=== PATIENT | female | born 1950 | race Hispanic/Latino ===

== ENCOUNTER 2017-05-23 22:17 | Emergency (ER) | payer MEDICARE, OTHER ==
[~2017-05-23 22:17] MED LIST: ASPI-1197 PO; FENO160T16 PO; METO-391 PO; NITR0.4T50 SL; OMEP40CA37 PO
[2017-05-23 23:20] LABS: BASOPHILS % (AUTO) 0.6 % (0.0-5.0); EOSINOPHILS % (AUTO) 3.5 % (0.0-8.0); HEMATOCRIT 39.5 % (36-48); LYMPHOCYTES % (AUTO) 36.5 % (21.0-51.0); MEAN CORPUSCULAR HEMOGLOBIN 28.5 pg (27.0-33.0); MEAN CORPUSCULAR HGB CONC 32.9 g/dL (32.0-36.0); MEAN CORPUSCULAR VOLUME 86.6 fL (79-99); MONOCYTES % (AUTO) 6.1 % (3.0-13.0); NEUTROPHILS % (AUTO) 53.3 % (40.0-77.0); PLATELET COUNT (AUTO) 370 K/uL (130-400); RED BLOOD CELL COUNT(AUTO) 4.56 MIL/uL (4.00-5.50); RED CELL DISTRIBUTION WIDTH 14.5 % (11.0-15.5)
[2017-05-23 23:33] LABS: RAPID GROUP A STREP NEGATIVE (NEGATIVE)
[2017-05-23 23:36] LABS: POTASSIUM 3.8 mmol/L (3.5-5.1)
[2017-05-23 23:41] LABS: ALBUMIN 3.7 g/dL (3.5-5.0); BILIRUBIN,TOTAL 0.1 mg/dL (0.2-1.0); TOTAL PROTEIN, SERUM 7.5 g/dL (6.0-8.3)
== END 2017-05-24 00:10 | disposition home or self-care (01) ==
LOC: EDH 22:17
DX: B34.9 Viral infection, unspecified (principal); M19.90 Unspecified osteoarthritis, unspecified site; K21.9 Gastro-esophageal reflux disease without esophagitis; E78.5 Hyperlipidemia, unspecified; I10 Essential (primary) hypertension; Z88.1 Allergy status to other antibiotic agents; Z88.8 Allergy status to other drugs, medicaments and biological substances; Z98.890 Other specified postprocedural states
CPT/HCPCS: 36415; 71045; 80053; 85025; 87804; 87880; 93005

== ENCOUNTER 2017-05-25 23:43 | Observation (INO) | payer OTHER ==
[~2017-05-25] VITALS: Ht 157.5 cm; Wt 71.1 kg
[2017-05-25] MEDS ORDERED: ASPIRIN 325 MG TABLET ONE (23:52)
[2017-05-25] MEDS ORDERED: NITROGLYCERIN 0.4 MG SL TAB SL ONE (23:52)
[2017-05-26 00:12] LABS: BASOPHILS % (AUTO) 0.8 % (0.0-5.0); EOSINOPHILS % (AUTO) 2.8 % (0.0-8.0); HEMATOCRIT 36.6 % (36-48); LYMPHOCYTES % (AUTO) 15.9 % (21.0-51.0); MEAN CORPUSCULAR HEMOGLOBIN 29.2 pg (27.0-33.0); MEAN CORPUSCULAR HGB CONC 33.8 g/dL (32.0-36.0); MEAN CORPUSCULAR VOLUME 86.3 fL (79-99); MONOCYTES % (AUTO) 5.1 % (3.0-13.0); NEUTROPHILS % (AUTO) 75.4 % (40.0-77.0); PLATELET COUNT (AUTO) 388 K/uL (130-400); RED BLOOD CELL COUNT(AUTO) 4.24 MIL/uL (4.00-5.50); RED CELL DISTRIBUTION WIDTH 14.3 % (11.0-15.5); WHITE BLOOD COUNT (AUTO) 10.7 K/uL (4.8-10.8)
[2017-05-26 00:21] LABS: POTASSIUM 3.3 mmol/L (3.5-5.1)
[2017-05-26 00:25] LABS: ALBUMIN 3.7 g/dL (3.5-5.0); BILIRUBIN,TOTAL 0.1 mg/dL (0.2-1.0); TOTAL PROTEIN, SERUM 7.3 g/dL (6.0-8.3)
[2017-05-26 00:36] LABS: INR 0.94 (0.85-1.15); PARTIAL THROMBOPLASTIN TIME 26.3 SEC (26.3-35.5); PROTHROMBIN TIME 9.9 SEC (9.6-11.6)
[2017-05-26] MEDS ORDERED: HYDRALAZINE HCL 20 MG/ML VIAL IV PRN (03:30)
[2017-05-26 03:45] VITALS: BP 137/76
[2017-05-26] MEDS ORDERED: OSEL75 PO (04:04)
[2017-05-26 06:32] LABS: CREATINE KINASE MB 0.7 ng/mL (0.5-3.6); CREATINE KINASE, TOTAL 99 U/L (21-232); MYOGLOBIN 40 ng/mL (10-92); TROPONIN I < 0.04 ng/mL (0.00-0.06)
[2017-05-26 08:00] VITALS: BP 138/72
[2017-05-26] MEDS: ASPIRIN 81 MG EC TAB PO SCH ×3 (09:00→17:53)
[2017-05-26 11:58] VITALS: BP 129/72
[2017-05-26 12:32] LABS: CREATINE KINASE MB 0.8 ng/mL (0.5-3.6); CREATINE KINASE, TOTAL 105 U/L (21-232); MYOGLOBIN 43 ng/mL (10-92); TROPONIN I < 0.04 ng/mL (0.00-0.06)
[2017-05-26 15:59] VITALS: BP 118/66
== END 2017-05-26 18:40 | disposition home or self-care (01) ==
LOC: EDH 23:43 → EDHIP 05-26 02:20 → INTOOBSV 05-26 02:20 → 3CH 05-26 03:34
PROVIDERS: ADMIT Family Medicine; ATTEND Family Medicine
DX: R07.89 Other chest pain (principal); I10 Essential (primary) hypertension; E78.00 Pure hypercholesterolemia, unspecified; K21.9 Gastro-esophageal reflux disease without esophagitis; E78.5 Hyperlipidemia, unspecified; Z88.1 Allergy status to other antibiotic agents; Z79.82 Long term (current) use of aspirin; Z79.899 Other long term (current) drug therapy
CPT/HCPCS: 36415; 80053; 82550 ×3; 82553 ×2; 83874 ×2; 84484 ×3; 85025; 85610; 85730; 93005 ×3; 99285; G0378 ×16

== ENCOUNTER → 2017-06-25 | Outpatient (CLI) | payer OTHER ==
[~2017-06-25] MED LIST changes: +OSEL75 PO; +REGADENOSON 0.4 MG/5 ML PF SYG IVP SCH
== END | disposition home or self-care (01) ==
LOC: SHCH 07:52
PROVIDERS: ATTEND Internal Medicine Cardiovascular Disease
DX: R07.9 Chest pain, unspecified (principal)
CPT/HCPCS: 78452; 93017; 96374; A9500 ×2; J2785

== ENCOUNTER 2018-01-06 19:18 | Emergency (ER) | payer OTHER ==
[~2018-01-06 19:18] MED LIST changes: -REGADENOSON 0.4 MG/5 ML PF SYG IVP SCH
[2018-01-06 19:46] LABS: APPEARANCE,URINE Clear (CLEAR); BILIRUBIN,URINE Negative (NEGATIVE); COLOR,URINE Yellow (YELLOW); GLUCOSE, URINE (UA) Negative (NEGATIVE); KETONES,URINE Negative (NEGATIVE); LEUKOCYTE ESTERASE ,URINE Negative (NEGATIVE); NITRATE,URINE Negative (NEGATIVE); OCCULT BLOOD,URINE Trace (NEGATIVE); PH,URINE 5.5 (5.0-8.0); PROTEIN,URINE Negative (NEGATIVE); UROBILINOGEN,URINE 0.2 mg/dL (0.2-1.0)
[2018-01-06 20:01] LABS: BACTERIA,URINE Rare /HPF (None Seen); RBC,URINE 0-1 /HPF (0-1); SQUAMOUS EPITHELIAL CELL,UR Rare /HPF (0-2); WBC,URINE 0-1 /HPF (0-1)
[2018-01-06 20:32] LABS: BASOPHILS % (AUTO) 0.7 % (0.0-5.0); EOSINOPHILS % (AUTO) 1.5 % (0.0-8.0); HEMATOCRIT 38.2 % (36-48); MEAN CORPUSCULAR HEMOGLOBIN 28.7 pg (27.0-33.0); MEAN CORPUSCULAR VOLUME 86.8 fL (79-99); MONOCYTES % (AUTO) 7.7 % (3.0-13.0); NEUTROPHILS % (AUTO) 61.1 % (40.0-77.0); NUCLEATED RED BLOOD CELLS 0.1 % (0.0-0.19); PLATELET COUNT (AUTO) 328 K/uL (130-400); RED CELL DISTRIBUTION WIDTH 13.9 % (11.0-15.5); WHITE BLOOD COUNT (AUTO) 9.6 K/uL (4.8-10.8)
[2018-01-06] MEDS ORDERED: ACETAMINOPHEN-CODEINE 300/30MG TAB ONE (20:35)
[2018-01-06 20:48] LABS: POTASSIUM 3.6 mmol/L (3.5-5.1)
[2018-01-06 20:54] LABS: ALBUMIN 3.6 g/dL (3.5-5.0); BILIRUBIN,TOTAL 0.2 mg/dL (0.2-1.0); TOTAL PROTEIN, SERUM 7.4 g/dL (6.0-8.3)
== END 2018-01-06 22:10 | disposition home or self-care (01) ==
LOC: EDH 19:18
DX: M54.5 Low back pain (principal); R35.0 Frequency of micturition; K21.9 Gastro-esophageal reflux disease without esophagitis; E78.5 Hyperlipidemia, unspecified; I10 Essential (primary) hypertension; Z88.1 Allergy status to other antibiotic agents; Z88.8 Allergy status to other drugs, medicaments and biological substances; Z98.51 Tubal ligation status; Z98.890 Other specified postprocedural states
CPT/HCPCS: 36415; 74176; 80053; 81001; 83605; 83690; 84484; 85025; 93005

== ENCOUNTER 2018-01-10 01:14 | Emergency (ER) | payer OTHER ==
[2018-01-10 01:56] LABS: BASOPHILS % (AUTO) 1.2 % (0.0-5.0); EOSINOPHILS % (AUTO) 1.3 % (0.0-8.0); HEMATOCRIT 40.6 % (36-48); LYMPHOCYTES % (AUTO) 32.5 % (21.0-51.0); MEAN CORPUSCULAR HEMOGLOBIN 28.6 pg (27.0-33.0); MEAN CORPUSCULAR VOLUME 86.7 fL (79-99); MONOCYTES % (AUTO) 6.5 % (3.0-13.0); NEUTROPHILS % (AUTO) 58.5 % (40.0-77.0); PLATELET COUNT (AUTO) 328 K/uL (130-400); RED BLOOD CELL COUNT(AUTO) 4.68 MIL/uL (4.00-5.50); WHITE BLOOD COUNT (AUTO) 10.1 K/uL (4.8-10.8)
[2018-01-10 02:04] LABS: POTASSIUM 3.8 mmol/L (3.5-5.1)
[2018-01-10 02:06] LABS: INR 0.95 (0.85-1.15); PARTIAL THROMBOPLASTIN TIME 29.4 SEC (26.3-35.5)
[2018-01-10 02:09] LABS: ALBUMIN 3.8 g/dL (3.5-5.0); BILIRUBIN,TOTAL 0.2 mg/dL (0.2-1.0); TOTAL PROTEIN, SERUM 7.7 g/dL (6.0-8.3)
[2018-01-10 02:20] LABS: B-TYPE NATRIURETIC PEPTIDE 13 pg/mL (0-100)
[2018-01-10] MEDS ORDERED: MAGNESIUM HYDROXIDE 30 ML/UDCUP ONE (02:49)
[2018-01-10] MEDS ORDERED: LIDOCAINE HCL 2% VISCOUS 15 ML UDCUP ONE (02:49)
== END 2018-01-10 03:01 | disposition home or self-care (01) ==
LOC: EDH 01:14
DX: I10 Essential (primary) hypertension (principal); R07.89 Other chest pain; K21.9 Gastro-esophageal reflux disease without esophagitis; E78.5 Hyperlipidemia, unspecified; M19.90 Unspecified osteoarthritis, unspecified site; Z88.1 Allergy status to other antibiotic agents; Z88.8 Allergy status to other drugs, medicaments and biological substances; Z98.51 Tubal ligation status; Z98.890 Other specified postprocedural states
CPT/HCPCS: 36415; 71045; 80053; 82550; 83880; 84484; 85025; 85610; 85730; 93005; 94761

== ENCOUNTER 2018-01-19 20:11 | Emergency (ER) | payer OTHER ==
[2018-01-19] MEDS ORDERED: BUPIVACAINE/PF 0.5% 30ML VIAL ONE (21:14)
[2018-01-19] MEDS ORDERED: LIDOCAINE HCL-MPF 1% 2ML VIAL ONE (21:14)
[2018-01-19] MEDS ORDERED: MORPHINE SULFATE 2 MG/ML 1ML SYG ONE (21:17)
[2018-01-19] MEDS ORDERED: TETANUS/DIPHTHERIA TOXOID [ADULT] 0.5 ML VIAL IM ONE (21:17)
[2018-01-19] MEDS ORDERED: LIDOCAINE HCL MPF 1% 5ML VIAL ONE (21:20)
[2018-01-19 21:26] LABS: BASOPHILS % (AUTO) 0.7 % (0.0-5.0); EOSINOPHILS % (AUTO) 1.2 % (0.0-8.0); HEMATOCRIT 36.6 % (36-48); LYMPHOCYTES % (AUTO) 21.3 % (21.0-51.0); MEAN CORPUSCULAR HEMOGLOBIN 29.3 pg (27.0-33.0); MEAN CORPUSCULAR HGB CONC 33.8 g/dL (32.0-36.0); MEAN CORPUSCULAR VOLUME 86.8 fL (79-99); MONOCYTES % (AUTO) 6.7 % (3.0-13.0); NEUTROPHILS % (AUTO) 70.1 % (40.0-77.0); PLATELET COUNT (AUTO) 337 K/uL (130-400); RED BLOOD CELL COUNT(AUTO) 4.22 MIL/uL (4.00-5.50); WHITE BLOOD COUNT (AUTO) 10.1 K/uL (4.8-10.8)
[2018-01-19 21:37] LABS: CREATININE 1.1 mg/dL (0.5-1.5); POTASSIUM 4.1 mmol/L (3.5-5.1)
[2018-01-19 21:42] LABS: ALBUMIN 3.5 g/dL (3.5-5.0); BILIRUBIN,TOTAL 0.2 mg/dL (0.2-1.0); TOTAL PROTEIN, SERUM 6.9 g/dL (6.0-8.3)
[2018-01-19 22:03] LABS: APPEARANCE,URINE Clear (CLEAR); BILIRUBIN,URINE Negative (NEGATIVE); COLOR,URINE Yellow (YELLOW); GLUCOSE, URINE (UA) Negative (NEGATIVE); KETONES,URINE Negative (NEGATIVE); LEUKOCYTE ESTERASE ,URINE Negative (NEGATIVE); NITRATE,URINE Negative (NEGATIVE); OCCULT BLOOD,URINE Trace (NEGATIVE); PROTEIN,URINE Negative (NEGATIVE); UROBILINOGEN,URINE 0.2 mg/dL (0.2-1.0)
[2018-01-19 22:15] LABS: RBC,URINE 0-1 /HPF (0-1); WBC,URINE 0-1 /HPF (0-1)
[2018-01-19 22:16] LABS: BACTERIA,URINE None Seen /HPF (None Seen); SQUAMOUS EPITHELIAL CELL,UR Rare /HPF (0-2)
== END 2018-01-19 22:21 | disposition home or self-care (01) ==
LOC: EDH 20:11
DX: S42.292A Other displaced fracture of upper end of left humerus, initial encounter for closed fracture (principal); S91.112A Laceration without foreign body of left great toe without damage to nail, initial encounter; M19.90 Unspecified osteoarthritis, unspecified site; K21.9 Gastro-esophageal reflux disease without esophagitis; I10 Essential (primary) hypertension; E78.5 Hyperlipidemia, unspecified; Z98.890 Other specified postprocedural states; Z88.8 Allergy status to other drugs, medicaments and biological substances; Z79.899 Other long term (current) drug therapy; W01.0XXA Fall on same level from slipping, tripping and stumbling without subsequent striking against object, initial encounter; Y93.89 Activity, other specified; Y92.89 Other specified places as the place of occurrence of the external cause; Y99.8 Other external cause status
CPT/HCPCS: 12001; 36415; 70450; 73030; 73630; 80053; 81001; 84484; 85025; 90471; 90714; 93005; 96374; 99285; J3490 ×2

== ENCOUNTER 2018-01-30 09:35 | Observation (INO) | payer OTHER ==
[2018-01-29 16:19] LABS: BASOPHILS % (AUTO) 0.8 % (0.0-5.0); EOSINOPHILS % (AUTO) 1.5 % (0.0-8.0); HEMATOCRIT 36.9 % (36-48); LYMPHOCYTES % (AUTO) 25.3 % (21.0-51.0); MEAN CORPUSCULAR HEMOGLOBIN 29.5 pg (27.0-33.0); MEAN CORPUSCULAR HGB CONC 33.5 g/dL (32.0-36.0); MEAN CORPUSCULAR VOLUME 87.9 fL (79-99); MONOCYTES % (AUTO) 5.8 % (3.0-13.0); NEUTROPHILS % (AUTO) 66.6 % (40.0-77.0); PLATELET COUNT (AUTO) 457 K/uL (130-400); RED CELL DISTRIBUTION WIDTH 14.4 % (11.0-15.5); WHITE BLOOD COUNT (AUTO) 9.9 K/uL (4.8-10.8)
[2018-01-29 16:31] LABS: CREATININE 0.9 mg/dL (0.5-1.5); POTASSIUM 3.5 mmol/L (3.5-5.1)
[2018-01-29 16:32] VITALS: BP 161/75
[2018-01-29 16:33] LABS: INR 0.95 (0.85-1.15)
[2018-01-30] VITALS (16 sets, daily range): BP systolic 121–167; BP diastolic 55–84
[~2018-01-30] VITALS: Ht 156.2 cm; Wt 71.9 kg
[2018-01-30] MEDS: CEFAZOLIN SODIUM 1 GM VIAL IVP SCH ×3 (06:00→15:10)
[~2018-01-30 09:35] MED LIST changes: +ACET1TAB12 PO; +AMLO2.5T3 PO; -METO-391 PO; +METO-408 PO; -NITR0.4T50 SL; -OSEL75 PO
[2018-01-30] MEDS ORDERED: LACTATED RINGERS 1000ML 1,000 ML IV ONE (10:18)
[2018-01-30] MEDS ORDERED: ESMOLOL HCL 10 MG/ML 10 ML VIAL ONE (12:52)
[2018-01-30] MEDS ORDERED: LIDOCAINE PF 2% 5ML ABBOJECT ONE (12:52)
[2018-01-30] MEDS ORDERED: LIDOCAINE HCL 4% LTA SOL 4 ML VIAL ONE (12:52)
[2018-01-30] MEDS ORDERED: PROPOFOL 10 MG/ML 20ML VIAL IV ONE (12:53)
[2018-01-30] MEDS ORDERED: ONDANSETRON HCL 4 MG/2 ML VIAL ONE (12:53)
[2018-01-30] MEDS ORDERED: ROCURONIUM 10MG/1ML SYR 10 MG/ML ML ONE ×2 (12:53→15:22)
[2018-01-30] MEDS ORDERED: MIDAZOLAM HCL 1 MG/ML 2ML VIAL ONE (14:07)
[2018-01-30] MEDS ORDERED: FENTANYL CITRATE PF 50 MCG/1 ML 2ML VIAL ONE (14:07)
[2018-01-30] MEDS ORDERED: TRANEXAMIC ACID 1000MG/10ML IV ONE (15:04)
[2018-01-30] MEDS ORDERED: NEOSTIGMINE 5MG/5ML SYR IV ONE (16:57)
[2018-01-30] MEDS: ACETAMINOPHEN EXTRA STRENGTH 500 MG TABLET PO SCH ×2 (17:15→23:32)
[2018-01-30] MEDS ORDERED: POTASSIUM CHLORIDE 20MEQ/100ML 100 ML IV PRN (17:15)
[2018-01-30] MEDS ORDERED: HYDROCODONE/ACETAMINOPHEN 5/325 MG TAB PO PRN ×2 (17:15)
[2018-01-30] MEDS ORDERED: POTASSIUM CHLORIDE 20 MEQ ERTAB PO PRN (17:15)
[2018-01-30] MEDS ORDERED: CALCIUM CARBONATE 500 MG TABLET PO PRN (17:15)
[2018-01-30] MEDS ORDERED: PROMETHAZINE HCL 25 MG/ML 1ML AMPULE IM PRN (17:15)
[2018-01-30] MEDS ORDERED: DiphenhydrAMINE HCL 50 MG/ML VIAL IVP PRN (17:15)
[2018-01-30] MEDS ORDERED: TEMAZEPAM 15 MG CAPSULE PO PRN (17:15)
[2018-01-30] MEDS ORDERED: POTASSIUM CHLORIDE 10% ELIXIR 20 MEQ/15 ML UDCUP PO PRN (17:15)
[2018-01-30] MEDS ORDERED: DIPHENHYDRAMINE HCL 25 MG CAPSULE PO PRN (17:15)
[2018-01-30] MEDS ORDERED: LIDOCAINE HCL-MPF 1% 2ML VIAL IVP PRN (17:15)
[2018-01-30] MEDS ORDERED: FERROUS FUMARATE 324 MG TABLET PO PRN (17:15)
[2018-01-30] MEDS ORDERED: MEPERIDINE-PF 25 MG/ML SYG ONE (17:27)
[2018-01-30] MEDS: SODIUM CHLORIDE 0.9% 1000ML 1,000 ML IV SCH (18:22)
[2018-01-30] MEDS ORDERED: ASPIRIN 325 MG TABLET PO SCH (21:00)
[2018-01-30] MEDS ORDERED: AMLODIPINE BESYLATE 2.5 MG TAB PO SCH (21:00)
[2018-01-30] MEDS: FAMOTIDINE 20MG TAB 20 MG TAB PO SCH (21:44)
[2018-01-30] MEDS: CEFAZOLIN 3GM /D5W 100ML 100 ML IV SCH (22:33)
[2018-01-30] MEDS: KETOROLAC TROMETHAMINE 30MG/ML IV PRN (23:32)
[2018-01-31] MEDS: SODIUM CHLORIDE 0.9% 1000ML 1,000 ML IV SCH (02:55)
[2018-01-31 04:28] VITALS: BP 117/52
[2018-01-31 04:33] LABS: HEMATOCRIT 30.4 % (36-48); MEAN CORPUSCULAR HEMOGLOBIN 29.3 pg (27.0-33.0); MEAN CORPUSCULAR HGB CONC 33.7 g/dL (32.0-36.0); PLATELET COUNT (AUTO) 350 K/uL (130-400); RED BLOOD CELL COUNT(AUTO) 3.49 MIL/uL (4.00-5.50); RED CELL DISTRIBUTION WIDTH 14.3 % (11.0-15.5); WHITE BLOOD COUNT (AUTO) 11.1 K/uL (4.8-10.8)
[2018-01-31 04:47] LABS: CREATININE 0.9 mg/dL (0.5-1.5); POTASSIUM 3.8 mmol/L (3.5-5.1)
[2018-01-31] MEDS: CEFAZOLIN 3GM /D5W 100ML 100 ML IV SCH (05:48)
[2018-01-31 07:38] VITALS: BP 117/52
[2018-01-31] MEDS ORDERED: ASPIRIN 81MG TAB.CHEW PO SCH (09:00)
[2018-01-31] MEDS ORDERED: Fenofibrate 160 MG PO SCH (09:00)
[2018-01-31] MEDS ORDERED: Metoprolol Succinate 25 MG PO SCH (09:00)
[2018-01-31] MEDS ORDERED: ENOXAPARIN SODIUM 40 MG/0.4 ML SYRINGE SQ SCH (09:00)
[2018-01-31] MEDS ORDERED: POLYETHYLENE GLYCOL 3350 17 GM POWD.PACK PO SCH (09:00)
[2018-01-31] MEDS ORDERED: PANTOPRAZOLE SODIUM 40 MG TABLET.DR PO SCH (09:00)
[2018-01-31] MEDS: FAMOTIDINE 20MG TAB 20 MG TAB PO SCH (09:41)
[2018-01-31] MEDS: ACETAMINOPHEN EXTRA STRENGTH 500 MG TABLET PO SCH (09:42)
[2018-01-31 11:34] VITALS: BP 115/56
[2018-01-31] MEDS ORDERED: PSYLLIUM SEED 1 EACH PACKET PO SCH (12:00)
[2018-01-31] MEDS: KETOROLAC TROMETHAMINE 30MG/ML IV PRN (15:34)
[2018-01-31 16:03] VITALS: BP 116/51
[2018-01-31] MEDS ORDERED: HYDR-2132 PO (16:29)
[2018-02-01] MEDS ORDERED: BISACODYL 5 MG TABLET.DR PO PRN (17:15)
[2018-02-02] MEDS ORDERED: BISACODYL 10 MG SUPP.RECT RC PRN (17:15)
== END 2018-01-31 18:46 | disposition home or self-care (01) ==
LOC: DAH 09:35 → SUH 09:35 → DAHIP 09:36 → SUH 09:36 → 4BH 18:35
PROVIDERS: ADMIT Orthopaedic Surgery; ATTEND Orthopaedic Surgery
DX: S42.292A Other displaced fracture of upper end of left humerus, initial encounter for closed fracture (principal); I10 Essential (primary) hypertension; E78.5 Hyperlipidemia, unspecified; X58.XXXA Exposure to other specified factors, initial encounter; Y99.8 Other external cause status; Y92.89 Other specified places as the place of occurrence of the external cause; Y93.89 Activity, other specified
CPT/HCPCS: 24586; 36415 ×2; 76000; 80048 ×2; 85025; 85027; 85610; 85730; 93005; 96365; 96366; 96372; 96375 ×2; A4649 ×3; A4930 ×2; A6204; C1713 ×6; C1776; G0378 ×33; J0690 ×3; J1650; J1885 ×2; J2001; J2175; J2250; J2405; J2704; J2710; J3010; J3490 ×2; J7120 ×2

== ENCOUNTER 2018-11-08 00:24 | Emergency (ER) | payer OTHER ==
[~2018-11-08 00:24] MED LIST changes: -ACET1TAB12 PO; -AMLO2.5T3 PO; +AMLO2.5T4 PO; +HYDR-2132 PO
[2018-11-08 01:02] LABS: APPEARANCE,URINE Clear (CLEAR); BILIRUBIN,URINE Negative (NEGATIVE); COLOR,URINE Yellow (YELLOW); GLUCOSE, URINE (UA) Negative (NEGATIVE); KETONES,URINE Negative (NEGATIVE); LEUKOCYTE ESTERASE ,URINE Negative (NEGATIVE); NITRATE,URINE Negative (NEGATIVE); OCCULT BLOOD,URINE Negative (NEGATIVE); PROTEIN,URINE Negative (NEGATIVE); UROBILINOGEN,URINE 0.2 mg/dL (0.2-1.0)
[2018-11-08 01:06] LABS: EOSINOPHILS % (AUTO) 2.1 % (0.0-8.0); HEMATOCRIT 41.8 % (36-48); LYMPHOCYTES % (AUTO) 28.7 % (21.0-51.0); MEAN CORPUSCULAR HEMOGLOBIN 29.1 pg (27.0-33.0); MEAN CORPUSCULAR HGB CONC 33.3 g/dL (32.0-36.0); MEAN CORPUSCULAR VOLUME 87.3 fL (79-99); MONOCYTES % (AUTO) 7.2 % (3.0-13.0); PLATELET COUNT (AUTO) 383 K/uL (130-400); RED BLOOD CELL COUNT(AUTO) 4.78 MIL/uL (4.00-5.50); RED CELL DISTRIBUTION WIDTH 14.5 % (11.0-15.5); WHITE BLOOD COUNT (AUTO) 10.1 K/uL (4.8-10.8)
[2018-11-08 01:09] LABS: POTASSIUM 3.3 mmol/L (3.5-5.1)
[2018-11-08] MEDS ORDERED: MECLIZINE HCL 25 MG TABLET ONE (01:15)
== END 2018-11-08 02:44 | disposition home or self-care (01) ==
LOC: EDH 00:24
DX: R42 Dizziness and giddiness (principal); R11.0 Nausea; K21.9 Gastro-esophageal reflux disease without esophagitis; E78.5 Hyperlipidemia, unspecified; I10 Essential (primary) hypertension; M19.90 Unspecified osteoarthritis, unspecified site; Z88.1 Allergy status to other antibiotic agents; Z88.8 Allergy status to other drugs, medicaments and biological substances
CPT/HCPCS: 36415; 70450; 80048; 81003; 84484; 85025; 93005

== ENCOUNTER 2018-11-11 17:35 | Emergency (ER) | payer OTHER ==
[2018-11-11 17:51] LABS: BASOPHILS % (AUTO) 0.5 % (0.0-5.0); EOSINOPHILS % (AUTO) 1.3 % (0.0-8.0); HEMATOCRIT 40.2 % (36-48); LYMPHOCYTES % (AUTO) 25.3 % (21.0-51.0); MEAN CORPUSCULAR HGB CONC 32.9 g/dL (32.0-36.0); MEAN CORPUSCULAR VOLUME 87.9 fL (79-99); MONOCYTES % (AUTO) 6.7 % (3.0-13.0); NEUTROPHILS % (AUTO) 66.2 % (40.0-77.0); PLATELET COUNT (AUTO) 347 K/uL (130-400); RED BLOOD CELL COUNT(AUTO) 4.57 MIL/uL (4.00-5.50); RED CELL DISTRIBUTION WIDTH 14.6 % (11.0-15.5); WHITE BLOOD COUNT (AUTO) 9.5 K/uL (4.8-10.8)
[2018-11-11 18:04] LABS: CREATININE 1.1 mg/dL (0.5-1.5); POTASSIUM 3.5 mmol/L (3.5-5.1)
[2018-11-11 18:14] LABS: ALBUMIN 3.7 g/dL (3.5-5.0); BILIRUBIN,TOTAL 0.2 mg/dL (0.2-1.0); TOTAL PROTEIN, SERUM 7.2 g/dL (6.0-8.3)
[2018-11-11 18:40] LABS: INR 0.93 (0.85-1.15); PROTHROMBIN TIME 9.8 SEC (9.6-11.6)
== END 2018-11-11 21:39 | disposition home or self-care (01) ==
LOC: EDH 17:35
DX: R07.89 Other chest pain (principal); M19.90 Unspecified osteoarthritis, unspecified site; K21.9 Gastro-esophageal reflux disease without esophagitis; E78.5 Hyperlipidemia, unspecified; I10 Essential (primary) hypertension; Z88.1 Allergy status to other antibiotic agents; Z88.8 Allergy status to other drugs, medicaments and biological substances; Z88.7 Allergy status to serum and vaccine
CPT/HCPCS: 36415; 71045; 80053; 82550; 83874; 84484; 85025; 85610; 85730; 93005

== ENCOUNTER → 2019-11-14 | Outpatient (CLI) | payer OTHER ==
[~2019-11-14] MED LIST changes: +OMEP40CA13 PO; -OMEP40CA37 PO
== END | disposition home or self-care (01) ==
LOC: RAH 08:37
PROVIDERS: ATTEND Family Medicine
DX: I08.1 Rheumatic disorders of both mitral and tricuspid valves (principal); R01.1 Cardiac murmur, unspecified
CPT/HCPCS: 93306; 93356

== ENCOUNTER 2020-03-16 13:46 | Emergency (ER) | payer OTHER ==
[2020-03-16 14:24] LABS: BASOPHILS % (AUTO) 0.7 % (0.0-5.0); EOSINOPHILS % (AUTO) 0.1 % (0.0-8.0); HEMATOCRIT 38.6 % (36-48); LYMPHOCYTES % (AUTO) 14.6 % (21.0-51.0); MEAN CORPUSCULAR HEMOGLOBIN 28.5 pg (27.0-33.0); MEAN CORPUSCULAR HGB CONC 32.9 g/dL (32.0-36.0); MEAN CORPUSCULAR VOLUME 86.7 fL (79-99); MONOCYTES % (AUTO) 4.7 % (3.0-13.0); NEUTROPHILS % (AUTO) 79.4 % (40.0-77.0); PLATELET COUNT (AUTO) 404 K/uL (130-400); RED BLOOD CELL COUNT(AUTO) 4.45 MIL/uL (4.00-5.50); RED CELL DISTRIBUTION WIDTH 13.7 % (11.0-15.5); WHITE BLOOD COUNT (AUTO) 11.2 K/uL (4.8-10.8)
[2020-03-16 14:35] LABS: CREATININE 1.2 mg/dL (0.5-1.5)
[2020-03-16 14:40] LABS: ALBUMIN 4.1 g/dL (3.5-5.0); BILIRUBIN,TOTAL 0.2 mg/dL (0.2-1.0); TOTAL PROTEIN, SERUM 7.8 g/dL (6.0-8.3)
[2020-03-16 14:48] LABS: APPEARANCE,URINE Clear (CLEAR); BILIRUBIN,URINE Negative (NEGATIVE); COLOR,URINE Yellow (YELLOW); GLUCOSE, URINE (UA) Negative (NEGATIVE); KETONES,URINE Negative (NEGATIVE); LEUKOCYTE ESTERASE ,URINE Negative (NEGATIVE); NITRATE,URINE Negative (NEGATIVE); OCCULT BLOOD,URINE Trace (NEGATIVE); PH,URINE 5.5 (5.0-8.0); PROTEIN,URINE Negative (NEGATIVE); UROBILINOGEN,URINE 0.2 mg/dL (0.2-1.0)
[2020-03-16 15:13] LABS: BACTERIA,URINE None Seen /HPF (None Seen); RBC,URINE None Seen /HPF (0-1); SQUAMOUS EPITHELIAL CELL,UR None Seen /HPF (0-2); WBC,URINE 0-1 /HPF (0-1)
[2020-03-16] MEDS ORDERED: ACETAMINOPHEN EXTRA STRENGTH 500 MG TABLET ONE (15:52)
== END 2020-03-16 16:35 | disposition home or self-care (01) ==
LOC: EDH 13:46
DX: I16.0 Hypertensive urgency (principal); F41.9 Anxiety disorder, unspecified; I10 Essential (primary) hypertension; E78.5 Hyperlipidemia, unspecified; K21.9 Gastro-esophageal reflux disease without esophagitis; M19.90 Unspecified osteoarthritis, unspecified site; Z88.1 Allergy status to other antibiotic agents; Z88.8 Allergy status to other drugs, medicaments and biological substances
CPT/HCPCS: 36415; 71045; 80053; 81001; 84484; 85025; 93005

== ENCOUNTER 2020-05-12 14:54 | Emergency (ER) | payer OTHER ==
[2020-05-12] MEDS ORDERED: NITROGLYCERIN 1GM/1 INCH PACKET TD ONE (15:12)
[2020-05-12] MEDS ORDERED: ASPIRIN 325 MG TABLET ONE (15:12)
[2020-05-12 15:31] LABS: BASOPHILS % (AUTO) 0.6 % (0.0-5.0); EOSINOPHILS % (AUTO) 0.2 % (0.0-8.0); HEMATOCRIT 38.6 % (36-48); LYMPHOCYTES % (AUTO) 14.9 % (21.0-51.0); MEAN CORPUSCULAR HEMOGLOBIN 28.3 pg (27.0-33.0); MEAN CORPUSCULAR HGB CONC 33.2 g/dL (32.0-36.0); MEAN CORPUSCULAR VOLUME 85.4 fL (79-99); NEUTROPHILS % (AUTO) 78.7 % (40.0-77.0); PLATELET COUNT (AUTO) 360 K/uL (130-400); RED BLOOD CELL COUNT(AUTO) 4.52 MIL/uL (4.00-5.50); WHITE BLOOD COUNT (AUTO) 10.9 K/uL (4.8-10.8)
[2020-05-12 15:42] LABS: CREATININE 0.8 mg/dL (0.5-1.5); POTASSIUM 3.7 mmol/L (3.5-5.1)
[2020-05-12 15:46] LABS: BILIRUBIN,TOTAL 0.3 mg/dL (0.2-1.0); TOTAL PROTEIN, SERUM 7.6 g/dL (6.0-8.3)
[2020-05-12] MEDS ORDERED: HYOSCYAMINE SULFATE 0.125 MG TAB.SUBL SL ONE (15:52)
[2020-05-12] MEDS ORDERED: SUCRALFATE 1 GM TABLET ONE (15:52)
== END 2020-05-12 18:37 | disposition home or self-care (01) ==
LOC: EDH 14:54
DX: K21.00 Gastro-esophageal reflux disease with esophagitis, without bleeding (principal); R07.89 Other chest pain; F41.9 Anxiety disorder, unspecified; I10 Essential (primary) hypertension; E78.5 Hyperlipidemia, unspecified; M19.90 Unspecified osteoarthritis, unspecified site; Z88.1 Allergy status to other antibiotic agents; Z88.8 Allergy status to other drugs, medicaments and biological substances; Z98.51 Tubal ligation status; Z98.890 Other specified postprocedural states
CPT/HCPCS: 36415; 80053; 82550; 84484; 85025; 93005

== ENCOUNTER 2020-11-20 02:53 | Emergency (ER) | payer OTHER ==
[~2020-11-20] VITALS: Ht 154.9 cm; Wt 62.1 kg
[~2020-11-20 02:53] MED LIST changes: -OMEP40CA13 PO; +OMEP40CA21 PO
[2020-11-20 03:01] VITALS: BP 155/78
== END 2020-11-20 05:09 | disposition left against medical advice (07) ==
LOC: EDH 02:53
DX: R07.89 Other chest pain (principal); Z53.21 Procedure and treatment not carried out due to patient leaving prior to being seen by health care provider
CPT/HCPCS: 93005

== ENCOUNTER 2021-10-04 00:18 | Emergency (ER) | payer OTHER ==
[~2021-10-04] VITALS: Ht 157.5 cm; Wt 66.7 kg
[2021-10-04 00:48] LABS: APPEARANCE,URINE Clear (CLEAR); BILIRUBIN,URINE Negative (NEGATIVE); COLOR,URINE Yellow (YELLOW); GLUCOSE, URINE (UA) Negative (NEGATIVE); KETONES,URINE Negative (NEGATIVE); LEUKOCYTE ESTERASE ,URINE Negative (NEGATIVE); NITRATE,URINE Negative (NEGATIVE); OCCULT BLOOD,URINE Negative (NEGATIVE); PH,URINE 6.5 (5.0-8.0); PROTEIN,URINE Negative (NEGATIVE); UROBILINOGEN,URINE 0.2 mg/dL (0.2-1.0)
[2021-10-04 00:55] LABS: BASOPHILS % (AUTO) 0.7 % (0.0-5.0); EOSINOPHILS % (AUTO) 1.9 % (0.0-8.0); HEMATOCRIT 40.1 % (36-48); LYMPHOCYTES % (AUTO) 34.7 % (21.0-51.0); MEAN CORPUSCULAR HEMOGLOBIN 28.7 pg (27.0-33.0); MEAN CORPUSCULAR HGB CONC 33.2 g/dL (32.0-36.0); MEAN CORPUSCULAR VOLUME 86.6 fL (79-99); MONOCYTES % (AUTO) 6.3 % (3.0-13.0); NEUTROPHILS % (AUTO) 55.9 % (40.0-77.0); PLATELET COUNT (AUTO) 302 K/uL (130-400); RED BLOOD CELL COUNT(AUTO) 4.63 MIL/uL (4.00-5.50); RED CELL DISTRIBUTION WIDTH 14.4 % (11.0-15.5)
[2021-10-04 01:16] LABS: CREATININE 0.9 mg/dL (0.5-1.5); POTASSIUM 3.7 mmol/L (3.5-5.1)
[2021-10-04 01:26] LABS: ALBUMIN 3.8 g/dL (3.5-5.0); BILIRUBIN,TOTAL 0.3 mg/dL (0.2-1.0); TOTAL PROTEIN, SERUM 7.3 g/dL (6.0-8.3)
[2021-10-04 02:41] VITALS: BP 132/74
== END 2021-10-04 02:42 | disposition home or self-care (01) ==
LOC: EDH 00:18
DX: R42 Dizziness and giddiness (principal); F43.0 Acute stress reaction; F41.9 Anxiety disorder, unspecified; M19.90 Unspecified osteoarthritis, unspecified site; F32.0 Major depressive disorder, single episode, mild; E78.00 Pure hypercholesterolemia, unspecified; I10 Essential (primary) hypertension; Z79.899 Other long term (current) drug therapy; Z79.82 Long term (current) use of aspirin; Z88.8 Allergy status to other drugs, medicaments and biological substances; Z88.1 Allergy status to other antibiotic agents
CPT/HCPCS: 36415; 71045; 80053; 81003; 84484; 85025; 93005

== ENCOUNTER 2023-01-05 20:29 | Observation (INO) | payer OTHER, MEDICARE ==
[~2023-01-05] VITALS: Ht 157.5 cm; Wt 67.0 kg
[2023-01-05 22:00] LABS: APPEARANCE,URINE CLEAR (CLEAR); BILIRUBIN,URINE NEGATIVE (NEGATIVE); COLOR,URINE COLORLESS (YELLOW); GLUCOSE, URINE (UA) NEGATIVE (NEGATIVE); KETONES,URINE NEGATIVE (NEGATIVE); LEUKOCYTE ESTERASE ,URINE NEGATIVE Leu/uL (NEGATIVE); NITRATE,URINE NEGATIVE (NEGATIVE); PH,URINE 5.5 (5.0-8.0); PROTEIN,URINE NEGATIVE (NEGATIVE); UROBILINOGEN,URINE 0.2 mg/dL (0.2-1.0)
[2023-01-05] MEDS ORDERED: ASPIRIN 325MG TAB PO ONE (22:00)
[2023-01-05 22:01] LABS: ADD UA MICROSCOPIC YES; RBC,URINE 0-1 /HPF (0-1); WBC,URINE 0-1 /HPF (0-1)
[2023-01-05 22:04] LABS: BASOPHILS # (AUTO) 0.07 K/uL (0.00-0.20); BASOPHILS % (AUTO) 0.8 % (0.0-5.0); EOSINOPHILS # (AUTO) 0.08 K/uL (0.00-0.70); EOSINOPHILS % (AUTO) 0.9 % (0.0-8.0); HEMATOCRIT 37.9 % (36-48); IMMATURE GRANULOCYTE ABSOLUTE 0.05 K/uL (0-1); LYMPHOCYTES # (AUTO) 2.1 K/uL (1.0-4.8); LYMPHOCYTES % (AUTO) 23.1 % (21.0-51.0); MEAN CORPUSCULAR HEMOGLOBIN 29.5 pg (27.0-33.0); MEAN CORPUSCULAR VOLUME 89.4 fL (79-99); MONOCYTES # (AUTO) 0.6 K/uL (0.1-1.0); MONOCYTES % (AUTO) 6.1 % (3.0-13.0); NEUTROPHILS # (AUTO) 6.3 K/uL (1.8-7.7); NEUTROPHILS % (AUTO) 68.6 % (40.0-77.0); PLATELET COUNT (AUTO) 311 K/uL (130-400); RED BLOOD CELL COUNT(AUTO) 4.24 MIL/uL (4.00-5.50); RED CELL DISTRIBUTION WIDTH 14.5 % (11.0-15.5); WHITE BLOOD COUNT (AUTO) 9.2 K/uL (4.8-10.8)
[2023-01-05 22:18] LABS: CREATININE 0.8 mg/dL (0.5-1.5)
[2023-01-05 22:23] LABS: ALBUMIN 3.8 g/dL (3.5-5.0); BILIRUBIN,TOTAL 0.2 mg/dL (0.2-1.0); TOTAL PROTEIN, SERUM 7.1 g/dL (6.0-8.3)
[2023-01-05 22:24] LABS: B-TYPE NATRIURETIC PEPTIDE 15 pg/mL (0-100)
[2023-01-06] VITALS (8 sets, daily range): BP systolic 106–183; BP diastolic 48–77; PULSE 66–104; RESP 16–19; O2SAT 97–100
[2023-01-06] MEDS ORDERED: ALBUTEROL 0.083% 2.5 MG/3 ML INH IH PRN (00:30)
[2023-01-06] MEDS ORDERED: DIPHENHYDRAMINE HCL 25 MG CAPSULE PO PRN (00:30)
[2023-01-06] MEDS ORDERED: ZOLPIDEM TARTRATE 5 MG TAB PO PRN (00:30)
[2023-01-06] MEDS ORDERED: NITROGLYCERIN 0.4 MG SL TAB SL PRN (00:30)
[2023-01-06] MEDS ORDERED: LIDOCAINE HCL 2% VISCOUS 30 ML, MAG/ALUM/SIMETH 30ML 30 ML, DICYCLOMINE HCL 20 MG PO SCH ×3 (00:30)
[2023-01-06] MEDS ORDERED: ONDANSETRON 4MG INJ IV PRN (00:30)
[2023-01-06] MEDS ORDERED: MAGNESIUM 2GM PREMIX 50ML 50 ML IV PRN (00:30)
[2023-01-06] MEDS ORDERED: LOPERAMIDE HCL 2 MG CAP PO PRN (00:30)
[2023-01-06] MEDS ORDERED: POTASSIUM CHLORIDE 20MEQ/100ML 100 ML IV PRN ×2 (00:30)
[2023-01-06] MEDS ORDERED: GLUCAGON 1MG KIT 1 MG ML IM PRN (00:30)
[2023-01-06] MEDS ORDERED: HYDRALAZINE 25MG TABLET PO PRN (00:30)
[2023-01-06] MEDS ORDERED: DiphenhydrAMINE HCL 50 MG/ML VIAL IV PRN (00:30)
[2023-01-06] MEDS ORDERED: LACTULOSE 20 GM/30 ML UDCUP PO PRN (00:30)
[2023-01-06] MEDS ORDERED: ALPRAZOLAM 0.5 MG TABLET PO PRN (00:30)
[2023-01-06] MEDS ORDERED: GUAIFENESIN-DM 200/20 MG 10 ML PO PRN (00:30)
[2023-01-06] MEDS ORDERED: POTASSIUM CHLORIDE 10% ELIXIR 20 MEQ/15 ML UDCUP PO PRN (00:30)
[2023-01-06] MEDS ORDERED: POLYETHYLENE GLYCOL 3350 17 GM POWD.PACK PO PRN (00:30)
[2023-01-06] MEDS ORDERED: KCL 20 MEQ ERTAB PO PRN (00:30)
[2023-01-06] MEDS ORDERED: ACETAMINOPHEN 325 MG TAB PO PRN ×2 (00:30)
[2023-01-06] MEDS ORDERED: GUAIFENESIN SUGAR-FREE 100 MG/5 ML UDCUP PO PRN (00:30)
[2023-01-06] MEDS ORDERED: MAG/ALUM/SIMETH 30 ML UDCUP PO PRN (00:30)
[2023-01-06] MEDS ORDERED: DEXTROSE 50%-WATER 50 ML DISP.SYRIN IV PRN (00:30)
[2023-01-06] MEDS ORDERED: DOCUSATE SODIUM 100 MG CAP PO PRN (00:30)
[2023-01-06] MEDS ORDERED: DICYCLOMINE HCL 10 MG/5 ML ML PO ONE (00:44)
[2023-01-06] MEDS ORDERED: LIDOCAINE HCL 2% VISCOUS 15 ML UDCUP ONE (00:44)
[2023-01-06] MEDS: LIDOCAINE HCL 2% VISCOUS 30 ML, MAG/ALUM/SIMETH 30ML 30 ML, DICYCLOMINE HCL 20 MG PO SCH ×6 (01:30→07:05)
[2023-01-06] MEDS: ENOXAPARIN SODIUM 40 MG/0.4 ML SYRINGE SQ SCH ×2 (01:30→09:53)
[2023-01-06] MEDS ORDERED: IOHEXOL 350 MG/ML 100ML INFUS..BTL IV ONE (01:51)
[2023-01-06] MEDS ORDERED: ALPR0.255 PO (01:58)
[2023-01-06] MEDS ORDERED: ROSU20TA73 PO (01:58)
[2023-01-06] MEDS ORDERED: LISI10TA24 PO (01:58)
[2023-01-06] MEDS ORDERED: ALEN70TA80 PO (01:58)
[2023-01-06] MEDS ORDERED: AMLO-257 PO (01:58)
[2023-01-06] MEDS: NITROGLYCERIN 1GM OINT 1 INCH/1GM TD SCH ×2 (03:29→09:54)
[2023-01-06 06:16] LABS: AMPHET/METH SCREEN,URINE NEGATIVE (NEGATIVE); BARBITURATE SCREEN, URINE NEGATIVE (NEGATIVE); BENZODIAZEPINES SCREEN,URINE NEGATIVE (NEGATIVE); CANNABINOID SCREEN,URINE NEGATIVE (NEGATIVE); COCAINE SCREEN,URINE NEGATIVE (NEGATIVE); OPIATE SCREEN,URINE NEGATIVE (NEGATIVE); PHENCYCLIDINE SCREEN,URINE NEGATIVE (NEGATIVE)
[2023-01-06] MEDS: INSULIN HUMULIN R 100 UNIT/ML 3ML SQ SCH ×2 (06:30→11:30)
[2023-01-06] MEDS ORDERED: FAMOTIDINE 20MG VIAL IV SCH (09:00)
[2023-01-06] MEDS ORDERED: LIDO20SO MM (16:10)
[2023-01-06] MEDS ORDERED: GABA-529 PO (16:10)
[2023-01-06] MEDS ORDERED: GABAPENTIN 100 MG CAPSULE ONE (16:20)
[2023-01-06] MEDS ORDERED: GABAPENTIN 100 MG CAPSULE PO SCH (16:30)
[2023-01-06] MEDS ORDERED: NON-FORMULARY MEDICATION 1 EACH (Rosuvastatin Calcium 1 TAB) PO SCH (21:00)
[2023-01-06] MEDS ORDERED: ATORVASTATIN 40 MG TABLET PO SCH (21:00)
[2023-01-07] MEDS ORDERED: AMLODIPINE 5 MG TAB PO SCH (09:00)
[2023-01-07] MEDS ORDERED: LISINOPRIL 10 MG TABLET PO SCH (09:00)
[2023-01-07] MEDS ORDERED: ASPIRIN 81MG CHEW TAB PO SCH (09:00)
== END 2023-01-06 18:56 | disposition home or self-care (01) ==
LOC: EDH 20:29 → EDHIP 01-06 00:02 → 3CH 01-06 01:23
PROVIDERS: ADMIT Internal Medicine Critical Care Medicine; ATTEND Internal Medicine Critical Care Medicine
DX: R07.89 Other chest pain (principal); D68.59 Other primary thrombophilia; I10 Essential (primary) hypertension; K21.9 Gastro-esophageal reflux disease without esophagitis; M81.0 Age-related osteoporosis without current pathological fracture; M19.90 Unspecified osteoarthritis, unspecified site; M26.602 Left temporomandibular joint disorder, unspecified; E66.3 Overweight; R68.84 Jaw pain; F41.9 Anxiety disorder, unspecified; Z68.28 Body mass index [BMI] 28.0-28.9, adult; Z79.82 Long term (current) use of aspirin; Z79.899 Other long term (current) drug therapy
CPT/HCPCS: 99285; 82550; 84484 ×3; 80053; 83880; 85025; 81001; 36415; 71045; 93005; 96374; 96372; 80305; 85378; 82948 ×3; 70450; 71270; 70486; 93306; 93970; G0378 ×17; J3490; J1650; Q9967

== ENCOUNTER 2023-02-10 22:47 | Emergency (ER) | payer OTHER, MEDICARE ==
[~2023-02-10] VITALS: Ht 152.4 cm; Wt 68.0 kg
[~2023-02-10 22:47] MED LIST changes: +ALEN70TA80 PO; +ALPR0.255 PO; +GABA-529 PO; -HYDR-2132 PO; +LIDO20SO MM; +LISI10TA24 PO; +ROSU20TA73 PO
[2023-02-10 23:54] LABS: BASOPHILS # (AUTO) 0.09 K/uL (0.00-0.20); BASOPHILS % (AUTO) 0.9 % (0.0-5.0); EOSINOPHILS # (AUTO) 0.18 K/uL (0.00-0.70); EOSINOPHILS % (AUTO) 1.9 % (0.0-8.0); IMMATURE GRANULOCYTE ABSOLUTE 0.04 K/uL (0-1); LYMPHOCYTES # (AUTO) 3.1 K/uL (1.0-4.8); LYMPHOCYTES % (AUTO) 32.5 % (21.0-51.0); MEAN CORPUSCULAR HEMOGLOBIN 29.4 pg (27.0-33.0); MEAN CORPUSCULAR HGB CONC 33.5 g/dL (32.0-36.0); MEAN CORPUSCULAR VOLUME 87.7 fL (79-99); MONOCYTES # (AUTO) 0.6 K/uL (0.1-1.0); MONOCYTES % (AUTO) 6.1 % (3.0-13.0); NEUTROPHILS # (AUTO) 5.6 K/uL (1.8-7.7); NEUTROPHILS % (AUTO) 58.2 % (40.0-77.0); PLATELET COUNT (AUTO) 342 K/uL (130-400); RED BLOOD CELL COUNT(AUTO) 4.56 MIL/uL (4.00-5.50); RED CELL DISTRIBUTION WIDTH 13.7 % (11.0-15.5); WHITE BLOOD COUNT (AUTO) 9.7 K/uL (4.8-10.8)
[2023-02-11 00:03] LABS: CREATININE 0.8 mg/dL (0.5-1.5); POTASSIUM 4.2 mmol/L (3.5-5.1)
[2023-02-11 00:22] LABS: ALBUMIN 4.1 g/dL (3.5-5.0); BILIRUBIN,TOTAL 0.2 mg/dL (0.2-1.0); TOTAL PROTEIN, SERUM 8.1 g/dL (6.0-8.3)
[2023-02-11] MEDS ORDERED: IBUP-1493 PO (01:07)
[2023-02-11] MEDS ORDERED: AMOX500C2 PO (01:07)
[2023-02-11 01:10] VITALS: BP 139/53; PULSE 66; RESP 18; O2SAT 98
== END 2023-02-11 01:37 | disposition home or self-care (01) ==
LOC: EDH 22:47
DX: H66.91 Otitis media, unspecified, right ear (principal); M19.90 Unspecified osteoarthritis, unspecified site; I10 Essential (primary) hypertension; K21.9 Gastro-esophageal reflux disease without esophagitis; E78.00 Pure hypercholesterolemia, unspecified; Z79.82 Long term (current) use of aspirin; Z79.899 Other long term (current) drug therapy; Z88.1 Allergy status to other antibiotic agents; Z88.8 Allergy status to other drugs, medicaments and biological substances
CPT/HCPCS: 36415; 71045; 80053; 82550; 83874; 84484; 85025; 93005

== ENCOUNTER → 2023-02-20 | Outpatient (CLI) | payer OTHER, MEDICARE ==
[~2023-02-20] MED LIST changes: +AMOX500C2 PO; +IBUP-1493 PO; +REGADENOSON 0.4 MG/5 ML PF SYG IVP ONE
== END | disposition home or self-care (01) ==
LOC: SHCH 07:56
PROVIDERS: ATTEND Internal Medicine Cardiovascular Disease
DX: R07.9 Chest pain, unspecified (principal)
CPT/HCPCS: 78452; 93017; J2785; A9500 ×2; 96374

== ENCOUNTER 2023-09-25 20:54 | Emergency (ER) | payer OTHER, MEDICARE ==
[~2023-09-25] VITALS: Ht 157.5 cm; Wt 71.7 kg
[~2023-09-25 20:54] MED LIST changes: -REGADENOSON 0.4 MG/5 ML PF SYG IVP ONE
[2023-09-25 21:55] LABS: BASOPHILS # (AUTO) 0.06 K/uL (0.00-0.20); BASOPHILS % (AUTO) 0.6 % (0.0-5.0); EOSINOPHILS # (AUTO) 0.19 K/uL (0.00-0.70); HEMATOCRIT 37.9 % (36-48); IMMATURE GRANULOCYTE ABSOLUTE 0.05 K/uL (0-1); LYMPHOCYTES # (AUTO) 2.8 K/uL (1.0-4.8); LYMPHOCYTES % (AUTO) 29.7 % (21.0-51.0); MEAN CORPUSCULAR HEMOGLOBIN 28.9 pg (27.0-33.0); MEAN CORPUSCULAR HGB CONC 33.5 g/dL (32.0-36.0); MEAN CORPUSCULAR VOLUME 86.3 fL (79-99); MONOCYTES # (AUTO) 0.7 K/uL (0.1-1.0); MONOCYTES % (AUTO) 7.6 % (3.0-13.0); NEUTROPHILS # (AUTO) 5.7 K/uL (1.8-7.7); NEUTROPHILS % (AUTO) 59.6 % (40.0-77.0); PLATELET COUNT (AUTO) 323 K/uL (130-400); RED BLOOD CELL COUNT(AUTO) 4.39 MIL/uL (4.00-5.50); RED CELL DISTRIBUTION WIDTH 14.2 % (11.0-15.5); WHITE BLOOD COUNT (AUTO) 9.6 K/uL (4.8-10.8)
[2023-09-25 22:10] LABS: ALBUMIN 4.1 g/dL (3.5-5.0); BILIRUBIN,TOTAL 0.3 mg/dL (0.2-1.0); TOTAL PROTEIN, SERUM 7.4 g/dL (6.0-8.3)
[2023-09-25 22:16] LABS: MAGNESIUM 1.9 mg/dL (1.80-2.40)
[2023-09-25] MEDS: ASPIRIN 81MG CHEW TAB PO ONE (23:29)
[2023-09-25] MEDS: PANTOPRAZOLE 40 MG/VIAL IVP ONE (23:30)
[2023-09-25] MEDS: ACETAMINOPHEN 500 MG TABLET PO ONE (23:30)
[2023-09-25] MEDS: MAG/ALUM/SIMETH 30 ML UDCUP PO ONE (23:32)
[2023-09-25] MEDS: DICYCLOMINE HCL 10 MG/5 ML ML PO ONE (23:32)
[2023-09-25] MEDS: LIDOCAINE HCL 2% VISCOUS 15 ML UDCUP PO ONE (23:33)
[2023-09-26] MEDS ORDERED: PANT20TA PO (00:42)
[2023-09-26 01:00] VITALS: BP 128/62; PULSE 74; RESP 16; O2SAT 98
== END 2023-09-26 01:07 | disposition home or self-care (01) ==
LOC: EDH 20:54
DX: R07.89 Other chest pain (principal); M54.9 Dorsalgia, unspecified; I10 Essential (primary) hypertension; E78.00 Pure hypercholesterolemia, unspecified; M19.90 Unspecified osteoarthritis, unspecified site; Z79.82 Long term (current) use of aspirin; Z79.899 Other long term (current) drug therapy; Z98.890 Other specified postprocedural states; Z88.8 Allergy status to other drugs, medicaments and biological substances
CPT/HCPCS: 99285; 96374; 71045; 82550; 83735; 84484; 80053; 85025; 36415; 93005; C9113